=== PATIENT | male | born 1995 | race Caucasian/White ===

== ENCOUNTER 2018-11-25 07:41 | Emergency (ER) | payer OTHER ==
[~2018-11-25] VITALS: Ht 185.4 cm; Wt 132.9 kg
[2018-11-25 07:45] VITALS: BP 152/85
[2018-11-25] MEDS ORDERED: CEPH-264 PO (08:26)
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
== END 2018-11-25 08:32 | disposition home or self-care (01) ==
LOC: ER 07:41
DX: S60.412A Abrasion of right middle finger, initial encounter (principal); Z77.21 Contact with and (suspected) exposure to potentially hazardous body fluids; W26.8XXA Contact with other sharp object(s), not elsewhere classified, initial encounter; Y93.89 Activity, other specified; Y92.148 Other place in prison as the place of occurrence of the external cause; Y99.0 Civilian activity done for income or pay
CPT/HCPCS: 86703; 86705; 86709; 86803; 87340; 99284